=== PATIENT | male | born 1985 | race Caucasian/White ===

== ENCOUNTER 2022-01-17 17:24 | Emergency (ER) | payer MEDICAID, OTHER ==
[~2022-01-17] VITALS: Ht 185.4 cm; Wt 86.2 kg
[2022-01-17 17:39] VITALS: BP 127/77
--- NOTE | 2022-01-17 18:00 | NUR ---
BIBS W/ C/O RIGHT HAND FIFTH AND FOURTH DIGIT SWELLING AND PAIN, RATED 5/10, S/P WHILE PLAYING BASKETBALL. PT A/O X4, AMBULATORY.
[2022-01-17] MEDS ORDERED: NAPR-1192 PO (19:30)
--- NOTE | 2022-01-17 19:38 | NUR ---
Patient discharged to home in stable condition. Written and verbal after care instructions given. Patient verbalizes understanding of instruction. Splint applied on rfa/r wrist.
== END 2022-01-17 19:38 | disposition home or self-care (01) ==
LOC: ER 17:39
DX: S62.324A Displaced fracture of shaft of fourth metacarpal bone, right hand, initial encounter for closed fracture (principal); Z79.1 Long term (current) use of non-steroidal anti-inflammatories (NSAID); X58.XXXA Exposure to other specified factors, initial encounter; Y93.67 Activity, basketball; Y92.89 Other specified places as the place of occurrence of the external cause; Y99.8 Other external cause status
CPT/HCPCS: 73130-TC